=== PATIENT | male | born 1995 | race Caucasian/White ===

== ENCOUNTER 2018-06-29 09:56 | Emergency (ER) | payer OTHER ==
[~2018-06-29] VITALS: Ht 177.8 cm; Wt 86.2 kg
[~2018-06-29 09:56] MED LIST: ALBUTEROL1.25 MG/1 INH; AMOXIL500 MG PO; DICLOFENAC POTA50 M1 PO; TERBINAFINE HC250 MG PO
[2018-06-29 09:59] VITALS: BP 136/78
[2018-06-29] MEDS ORDERED: AMOXICILLIN875 M1 PO (10:04)
[2018-06-29] MEDS ORDERED: CIPRODEX OTIC7.5 ML OT (10:04)
--- NOTE | 2018-06-29 10:04 | ED EAR COMPLAINT ---
History of Present Illness General Chief Complaint: Ear Complaints Stated Complaint: LEFT EAR PAIN Source: patient Exam Limitations: no limitations Vital Signs & Intake/Output Vital Signs & Intake/Output Vital Signs Date Time Temp Pulse Resp B/P B/P Pulse O2 O2 Flow FiO2 Mean Ox Delivery Rate 06/29 0959 97.1 81 18 136/78 98 Room Air Allergies Coded Allergies: NO KNOWN ALLERGIES (06/12/15) Reconcile Medications Albuterol Sulfate 1.25 MG/3 ML VIAL.NEB 2 PUFF INH DAILY PRN SOB (Reported) Amoxicillin 875 MG TABLET 1 TAB PO BID OTITIS MEDIA Ciprofloxacin HCl/Dexameth (Ciprodex Otic Suspension) 0.3 %-0.1 % DROPS.SUSP 4 GTT OT BID OTITIS EXTERNA Diclofenac Potassium 50 MG TABLET 1 TAB PO TID PRN PAIN Terbinafine HCl 250 MG TABLET 1 TAB PO DAILY TOE FUNGAL INFX (Reported) Triage Note: 22 YO MALE TO TRIAGE FOR EVAL OF L EAR PAIN X 3 DAYS Triage Nurses Notes Reviewed? yes Onset: Abrupt Duration: day(s): (3), constant, continues in ED Timing: single episode today Injury Environment: home Severity: moderate, severe Severity Numbers: 8 No Modifying Factors: none HPI: 22-year-old male presents for evaluation of left ear pain. He states symptoms started about 3 days ago. No ear discharge or fever. No tinnitus or other associated symptoms. No recent swimming is not taking any medicine for this. (Festus Darden) Past History Travel History Traveled to [place] past 21 day No Medical History Any Pertinent Medical History? see below for history Neurological: seizure EENT: NONE Cardiovascular: NONE Respiratory: NONE Gastrointestinal: NONE Hepatic: NONE Renal: NONE Musculoskeletal: fracture, RLE FX Psychiatric: NONE Endocrine: NONE Blood Disorders: NONE Cancer(s): NONE INSTRUMENTATION TECHNICIAN/Reproductive: NONE Surgical History Surgical History: N Psychosocial History What is your primary language [place] Tobacco Use: Never used Family History Hx Contributory? No (Festus Darden) Review of Systems Review of Systems Constitutional: Reports: no symptoms. EENTM: Reports: see HPI, ear pain. Respiratory: Reports: no symptoms. Cardiovascular: Reports: no symptoms. GI: Reports: no symptoms. Genitourinary: Reports: no symptoms. Musculoskeletal: Reports: no symptoms. Skin: Reports: no symptoms. Neurological/Psychological: Reports: no symptoms. Hematologic/Endocrine: Reports: no symptoms. Immunologic/Allergic: Reports: no symptoms. All Other Systems: Reviewed and Negative (Festus Darden) Physical Exam Physical Exam General Appearance: well developed/nourished, no apparent distress, alert, awake Head: atraumatic, normal appearance Eyes: Bilateral: normal appearance, EOMI. Ears: Left: tenderness, Tympanic dull, Tympanic red, Tympanic bulging, other ( erythmatous swollen left eac). Right: canal normal, Tympanic normal. Nose: normal inspection Mouth/Throat: normal mouth inspection, pharynx normal Neck: normal inspection, supple, full range of motion, no mastoid tenderness no para-auricular lymphadenopathy Cardiovascular/Respiratory: normal breath sounds, normal peripheral pulses, no respiratory distress Back: normal inspection, normal range of motion, no vertebral tenderness Neurologic/Psych: no motor/sensory deficits, awake, alert, oriented x 3, normal gait, normal mood/affect Skin: intact, normal color, warm/dry (Festus Darden) Progress Differential Diagnoses I considered the following diagnoses in my evaluation of the patient: [Otitis media otitis externa otitis media with effusion cerumen impaction] Plan of Care: Patient is here with evidence of both otitis media and otitis externa on exam. He is afebrile. No signs of mastoiditis. She is not a diabetic. Patient will be treated with Ciprodex drops and amoxicillin. Discussed return precautions and symptomatic treatment patient agrees the plan Initial ED EKG: none (Festus Darden) Departure Departure Disposition: HOME OR SELF CARE Condition: Stable Clinical Impression Primary Impression: Otitis externa Qualifiers: Otitis externa type: unspecified type Chronicity: acute Laterality: left Qualified Code: H60.502 - Unspecified acute noninfective otitis externa, left ear Referrals: Jose Daniel ASIF,Jesús Ariza (PCP/Family) Additional Instructions: TAKE ANTIBIOTICS AND APPLY DROPS FOR FULL COURSE. KEEP YOUR EARS DRY. TYLENOL/ IBUPROFEN FOR PAIN. RETURN WITH ANY CONCERNS. Departure Forms: Customer Survey General Discharge Information Prescriptions: Current Visit Scripts Ciprofloxacin HCl/Dexameth (Ciprodex Otic Suspension) 4 GTT OT BID #1 BOT Amoxicillin 1 TAB PO BID #20 TAB (Festus Darden) PA/OCEAN BIOLOGIST Co-Sign Statement Statement: ED Attending supervision documentation- [] I saw and evaluated the patient. I have also reviewed all the pertinent lab results and diagnostic results. I agree with the findings and the plan of care as documented in the PA's/OCEAN BIOLOGIST's documentation. [x] I have reviewed the ED Record and agree with the PA's/OCEAN BIOLOGIST's documentation. [] Additions or exceptions (if any) to the PAs/OCEAN BIOLOGIST's note and plan are summarized below: [] (Joseph ASIF,[facility])
== END 2018-06-29 10:14 ==
LOC: ERH 09:56
DX: H60.92 Unspecified otitis externa, left ear (principal)